=== PATIENT | female | born 1980 | race African-American/Black ===

== ENCOUNTER 2016-10-15 14:41 | Emergency (ER) | payer OTHER ==
[~2016-10-15] VITALS: Ht 154.9 cm; Wt 64.5 kg
[2016-10-15 14:55] VITALS: BP 135/84
== END 2016-10-15 15:58 | disposition home or self-care (01) ==
LOC: ED 15:50
DX: B35.3 Tinea pedis (principal)

== ENCOUNTER 2019-06-14 10:28 | Emergency (ER) | payer OTHER ==
[~2019-06-14] VITALS: Ht 154.9 cm; Wt 71.2 kg
[~2019-06-14 10:28] MED LIST: ATOR40TA78 PO; CITA40TA12 PO; DICL100T PO; FOLI20CA PO; LEVO75TA5 PO; METH25VI57 INJ; OMEP20TA62 PO; PRED-402 PO
[2019-06-14 11:25] LABS: MICROSCOPIC INDICATED
[2019-06-14 11:35] LABS: MEAN CORPUSCULAR HEMOGLOBIN 28.1 pg (27.0-34.8); MEAN CORPUSCULAR HGB CONC 33.3 g/dL (32.4-35.8); MEAN CORPUSCULAR VOLUME 84.5 fL (80-100); MEAN PLATELET VOLUME 8.2 fL (7.4-10.4); PLATELET COUNT 262 x10^3/uL (130-400); RED BLOOD COUNT 4.84 x10^6/uL (3.82-5.3); RED CELL DISTRIBUTION WIDTH 15.2 % (9.6-15.2)
[2019-06-14 11:40] LABS: ALBUMIN 3.8 g/dL (3.4-5.0); ANION GAP 4 mmol/L (5-15); CALCIUM 8.4 mg/dL (8.5-10.1); CHLORIDE 107 mmol/L (98-107)
[2019-06-14 11:43] LABS: CULTURE INDICATED? YES
[2019-06-14 11:43] LABS: ALANINE AMINOTRANSFERASE 25 U/L (12-78); ALKALINE PHOSPHATASE 65 U/L (45-117); BILIRUBIN,TOTAL 0.4 mg/dL (0.2-1.0); CREATININE 0.85 mg/dL (0.55-1.02); TOTAL PROTEIN 7.2 g/dL (6.4-8.2)
[2019-06-14 12:00] LABS: BASOPHILS # (AUTO) 0.04 x10^3/uL (0-0.1); BASOPHILS % (AUTO) 1 % (0-1); EOSINOPHILS # (AUTO) 0.04 x10^3/uL (0-0.4); EOSINOPHILS % (AUTO) 1 % (1-7); LYMPHOCYTES # (AUTO) 0.81 x10^3/uL (1-3.4); LYMPHOCYTES % (AUTO) 25 % (22-44); MD SCAN; MONOCYTES # (AUTO) 0.27 x10^3/uL (0.2-0.8); MONOCYTES % (AUTO) 8 % (2-9); NEUTROPHILS % (AUTO) 65 % (42-75)
[2019-06-14 12:29] VITALS: BP 162/78
--- NOTE | 2019-06-14 12:29 | NUR ---
PT HAS CO OF DIZZINESS AND WEAKNESS. DIZZY WHEN GETTING UP TO WALK. PT STATES SHE WAS DIAGNOSED W ANEMIA LAST YEAR, BUT HAS NOT FOLLOWED UP. VS STABLE. PT RESTING.
--- NOTE | 2019-06-14 13:12 | NUR ---
Patient/Caregiver given discharge instructions and they have confirmed that they understand the instructions. Patient ambulatory with steady gait.
--- NOTE | 2019-06-14 13:13 | NUR ---
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 BELONGINGS BACK TO PT.
== END 2019-06-14 13:39 | disposition home or self-care (01) ==
LOC: ED 11:35
DX: R53.1 Weakness (principal); G43.909 Migraine, unspecified, not intractable, without status migrainosus
CPT/HCPCS: 36415; 80053; 81001; 85025; 87086; 93005; 99284